=== PATIENT | female | born 1985 | race Caucasian/White ===

== ENCOUNTER 2019-09-17 09:24 | Observation (INO) ==
[2019-09-17] MEDS ORDERED: Ringers Solution, Lactated 1,000 ML ONE (11:54)
[2019-09-17] MEDS ORDERED: Ringers Solution, Lactated 1,000 ML IVC SCH (12:00)
[2019-09-17 12:15] LABS: Basophils % 0.5 %; Eosinophils # 0.3 K/mcL (0.0-0.6); Eosinophils % 3.6 %; Hematocrit 38.2 % (35.3-44.9); Hemoglobin 14.2 g/dL (11.5-15.4); Immature Granulocytes % 0.3 % (0-4); Lymphocytes # 2.3 K/mcL (0.6-4.6); Lymphocytes % 29.9 %; Mean Corpuscular Hemoglobin 32.3 pg (28.0-33.3); Mean Corpuscular Volume 86.8 fL (83.0-100.0); Mean Platelet Volume 10.5 fL (9.4-12.4); Monocytes # 0.5 K/mcL (0.0-1.3); Monocytes % 6.2 %; Neutrophils # 4.7 K/mcL (1.6-8.9); Platelet Count 268 K/mcL (140-400); Red Cell Distribution Width 11.9 % (11.5-14.5); Segmented Neutrophils % 59.5 %; White Blood Count 7.8 K/mcL (4.3-11.1)
[2019-09-17 12:16] LABS: Mean Corpuscular HGB Conc 37.2 g/dL (31.6-35.5)
[2019-09-17] MEDS: *HR* HYDROmorphone (PF) 1 MG/ML SYRINGE IVP PRN ×3 (12:21→16:33)
[2019-09-17] MEDS: Ondansetron 4 MG/2 ML VIAL IVP PRN ×2 (15:33→21:56)
[2019-09-17] MEDS ORDERED: *HR* Propofol 200 MG/20 ML VIAL IVP ONE (19:04)
[2019-09-17] MEDS ORDERED: *HR* HYDROmorphone (PF) 1 MG/ML SYRINGE IVP PRN (19:04)
[2019-09-17] MEDS ORDERED: *HR* Midazolam HCl 2 MG/2 ML VIAL ONE ×2 (19:04→20:42)
[2019-09-17] MEDS ORDERED: *HR* FentaNYL (PF) 100 MCG/2 ML VIAL ONE (19:04)
[2019-09-17] MEDS ORDERED: *HR* Promethazine 25 MG/ML VIAL IVP PRN (19:04)
[2019-09-17] MEDS ORDERED: Bupivacaine/EPI 1:200k 0.25%PF 30 ML VIAL ONE (19:09)
[2019-09-17] MEDS ORDERED: *HR* Rocuronium Bromide 50 MG/5 ML VIAL ONE (19:55)
[2019-09-17] MEDS ORDERED: Ondansetron 4 MG/2 ML VIAL ONE (19:55)
[2019-09-17] MEDS ORDERED: Dexamethasone 4 MG/ML VIAL ONE (19:55)
[2019-09-17] MEDS ORDERED: *HR* OxyCODONE/APAP 5/325 TABLET PO ONE (20:47)
[2019-09-17] MEDS ORDERED: Ketorolac 30 MG/ML VIAL ONE (20:55)
[2019-09-17] MEDS ORDERED: Neostigmine Methylsulfate 3 MG/3 ML SYRINGE ONE (20:56)
[2019-09-18 01:10] VITALS: BP 100/67
[2019-09-18] MEDS ORDERED: Ibuprofen 600 MG TABLET PO PRN (01:33)
[2019-09-18] MEDS: *HR* OxyCODONE/APAP 5/325 TABLET PO PRN ×2 (02:14→07:11)
== END 2019-09-18 07:20 | disposition home or self-care (01) ==
LOC: 1NENUOBS
PROVIDERS: ADMIT Obstetrics & Gynecology; ATTEND Obstetrics & Gynecology

== ENCOUNTER 2021-11-26 16:03 | Observation (INO) ==
[2021-11-26] MEDS ORDERED: Ibuprofen 600 MG TABLET PO ONE (17:22)
[2021-11-26 17:23] LABS: Basophils % 0.2 %; Eosinophils # 0.3 K/mcL (0.0-0.6); Hematocrit 36.8 % (35.3-44.9); Hemoglobin 12.8 g/dL (11.5-15.4); Immature Granulocytes % 0.2 % (0-4); Lymphocytes % 11.8 %; Mean Corpuscular HGB Conc 34.8 g/dL (31.6-35.5); Mean Corpuscular Hemoglobin 30.4 pg (28.0-33.3); Mean Corpuscular Volume 87.4 fL (83.0-100.0); Mean Platelet Volume 10.3 fL (9.4-12.4); Monocytes # 0.5 K/mcL (0.0-1.3); Monocytes % 5.5 %; Neutrophils # 6.9 K/mcL (1.6-8.9); Platelet Count 231 K/mcL (140-400); Red Blood Count 4.21 M/mcL (3.82-4.97); Red Cell Distribution Width 12.3 % (11.5-14.5); Segmented Neutrophils % 79.3 %; White Blood Count 8.7 K/mcL (4.3-11.1)
[2021-11-26 17:31] LABS: BUN/Creatinine Ratio 20 (6-26); Blood Urea Nitrogen 14 mg/dL (6-20); Calcium 9.3 mg/dL (8.6-10.3); Carbon Dioxide 26 mEq/L (23-29); Chloride 107 mEq/L (98-107); Glucose 93 mg/dL (70-105); Osmolality,Calculated 288 (280-300); Potassium 3.6 mEq/L (3.5-5.1); Sodium 139 mEq/L (136-145); eGFR For African Americans > 60 (> 60); eGFR For Non-African Americans > 60 (> 60)
[2021-11-26] MEDS ORDERED: Ipratropium/Albuterol Neb 3 ML IH ONE ×2 (17:34→20:27)
[2021-11-26] MEDS ORDERED: Isovue-370 500 ML BOTTLE IVP ONE (17:34)
[2021-11-26 17:53] LABS: Prothrombin Time 11.3 Seconds (9.4-12.1)
[2021-11-26 17:56] LABS: Activated Partial Thrombo Time 33.3 Seconds (26.0-36.0)
[2021-11-26] MEDS ORDERED: 0.9 % Sodium Chloride 1,000 ML IV ONE (18:28)
[2021-11-26 18:40] LABS: Troponin I < 0.03 ng/mL (< 0.04)
[2021-11-26] MEDS ORDERED: Melatonin 3 MG TABLET PO PRN (20:43)
[2021-11-26] MEDS ORDERED: Naloxone 0.4 MG/ML INJ IVP PRN (20:43)
[2021-11-26 20:44] LABS: Influenza A PCR Negative (Negative); Influenza B PCR Negative (Negative); Resp. Syncytial Virus PCR Negative (Negative)
[2021-11-26 20:50] LABS: SARS-CoV-2 by PCR (In House) Positive (Negative)
[2021-11-26 20:59] LABS: Amphetamine Screen,Urine Negative ng/mL (Cutoff=1000); Barbiturate Screen,Urine Negative ng/mL (Cutoff=200); Benzodiazepines Screen,Urine Negative ng/mL (Cutoff=200); Cannabinoid Screen,Urine Negative ng/mL (Cutoff = 50); Cocaine Screen,Urine Negative ng/mL (Cutoff= 300); Opiate Screen,Urine Negative ng/mL (Cutoff=300); Phencyclidine Screen,Urine Negative ng/mL (Cutoff=25)
[2021-11-27] MEDS: *HR* Enoxaparin 40 MG/0.4 ML SYRINGE SQ SCH (06:33)
[2021-11-27] MEDS ORDERED: MethylPREDNISolone 40 MG/ML VIAL IVP SCH (09:00)
[2021-11-27] MEDS: Ipratropium 1 PUFF INHALER IH PRN ×2 (11:16→19:50)
[2021-11-27] MEDS ORDERED: GuaiFENesin/Dextromethorphan TABLET PO PRN (13:44)
[2021-11-28] MEDS: *HR* Enoxaparin 40 MG/0.4 ML SYRINGE SQ SCH (05:17)
[2021-11-28 07:18] VITALS: BP 100/63; PULSE 79; TEMP 98.7
[2021-11-28 09:57] VITALS: O2SAT 98
== END 2021-11-28 10:01 | disposition home or self-care (01) ==
LOC: 3BNU 16:03 → EMEROOARM 16:03 → SUATTDRO 21:21 → 3BNU 21:54
PROVIDERS: ADMIT Internal Medicine; ATTEND Internal Medicine

== ENCOUNTER 2021-12-15 13:49 | Inpatient (IN) ==
[2021-12-15] MEDS ORDERED: *HR* LORazepam 2 MG/ML VIAL IVP ONE ×2 (14:12→17:46)
[2021-12-15] MEDS: Ipratropium/Albuterol Neb 3 ML IH ONE ×2 (14:19→15:51)
[2021-12-15 15:33] LABS: Basophils % 0.2 %; Eosinophils # 0.6 K/mcL (0.0-0.6); Eosinophils % 5.4 %; Hematocrit 40.5 % (35.3-44.9); Hemoglobin 13.8 g/dL (11.5-15.4); Immature Granulocytes % 0.3 % (0-4); Lymphocytes % 17.6 %; Mean Corpuscular HGB Conc 34.1 g/dL (31.6-35.5); Mean Corpuscular Hemoglobin 30.4 pg (28.0-33.3); Mean Corpuscular Volume 89.2 fL (83.0-100.0); Mean Platelet Volume 10.1 fL (9.4-12.4); Monocytes # 0.8 K/mcL (0.0-1.3); Monocytes % 6.7 %; Neutrophils # 7.8 K/mcL (1.6-8.9); Platelet Count 266 K/mcL (140-400); Red Blood Count 4.54 M/mcL (3.82-4.97); Red Cell Distribution Width 12.7 % (11.5-14.5); Segmented Neutrophils % 69.8 %; White Blood Count 11.2 K/mcL (4.3-11.1)
[2021-12-15 15:44] LABS: ABG Base Excess 1 mEq/L (-2 to 3); ABG HCO3 26 mEq/L (21-27); ABG Oxygen Saturation 89 % (95-98); ABG PCO2 42 mmHg (35-45); ABG PO2 56 mmHg (85-104); ABG TCO2 27 mEq/L (20-26)
[2021-12-15] MEDS ORDERED: Ipratropium/Albuterol Neb 3 ML ONE (15:47)
[2021-12-15] MEDS ORDERED: methylPREDNISolone 125 MG/2 ML VIAL IVP ONE (16:10)
[2021-12-15] MEDS ORDERED: Ondansetron ODT 4 MG TAB.RAPDIS SL PRN (17:42)
[2021-12-15] MEDS ORDERED: MOM Conc 10 ML UD.LIQ PO PRN (17:42)
[2021-12-15] MEDS ORDERED: Naloxone 0.4 MG/ML INJ IVP PRN (17:42)
[2021-12-15] MEDS ORDERED: Melatonin 3 MG TABLET PO PRN (17:42)
[2021-12-15] MEDS ORDERED: Mag Hydrox/Al Hydrox/Simeth 30 ML UDC PO PRN (17:42)
[2021-12-15] MEDS ORDERED: Isovue-370 500 ML BOTTLE IVP ONE (17:46)
[2021-12-15] MEDS: levoFLOXacin 750 MG/150 ML 750 MG/150 ML BAG IVPB SCH (18:12)
[2021-12-15 18:25] LABS: Alanine Aminotransferase 21 Units/L (7-52); Albumin 4.2 g/dL (3.5-5.7); Albumin/Globulin Ratio 1.4 (1.1-2.2); Alkaline Phosphatase 52 Units/L (34-104); Aspartate Amino Transferase 16 Units/L (13-39); BUN/Creatinine Ratio 13 (6-26); Bilirubin,Direct 0.1 mg/dL (0.0-0.2); Bilirubin,Indirect 0.5 mg/dL (0.0-1.0); Bilirubin,Total 0.6 mg/dL (0.3-1.0); Blood Urea Nitrogen 10 mg/dL (6-20); Calcium 8.9 mg/dL (8.6-10.3); Carbon Dioxide 23 mEq/L (23-29); Chloride 105 mEq/L (98-107); Glucose 120 mg/dL (70-105); Magnesium 2.2 mg/dL (1.6-2.6); Osmolality,Calculated 286 (280-300); Potassium 3.9 mEq/L (3.5-5.1); Sodium 138 mEq/L (136-145); Total Protein 7.2 g/dL (6.4-8.9); Troponin I < 0.03 ng/mL (< 0.04); eGFR For African Americans > 60 (> 60); eGFR For Non-African Americans > 60 (> 60)
[2021-12-15 18:37] LABS: Thyroid Stimulating Hormone 1.174 mcIU/mL (0.340-5.600)
[2021-12-15 19:14] LABS: Adenovirus Not Detected (Not Detect); Bordetella Pertussis Not Detected (Not Detect); Chlamydophila pneumoniae Not Detected (Not Detect); Coronavirus 229E Not Detected (Not Detect); Coronavirus HKU1 Not Detected (Not Detect); Coronavirus NL63 Not Detected (Not Detect); Coronavirus OC43 Not Detected (Not Detect); Human Metapneumovirus Not Detected (Not Detect); Human Rhinovirus/Enterovirus DETECTED (Not Detect); Influenza A Subtype 2009 H1 Not Detected (Not Detect); Influenza B Not Detected (Not Detect); Mycoplasma pneumoniae Not Detected (Not Detect); Parainfluenza Virus 1 Not Detected (Not Detect); Parainfluenza Virus 2 Not Detected (Not Detect); Parainfluenza Virus 3 Not Detected (Not Detect); Parainfluenza Virus 4 Not Detected (Not Detect); Respiratory Syncytial Virus Not Detected (Not Detect); SARS-CoV-2 Not Detected (Not Detect)
[2021-12-15] MEDS: Levalbuterol Neb 1.25 MG/3 ML IH SCH ×2 (19:25→22:22)
[2021-12-15 19:39] LABS: ABG Base Excess -2 mEq/L (-2 to 3); ABG HCO3 26 mEq/L (21-27); ABG Oxygen Saturation 99 % (95-98); ABG PCO2 54 mmHg (35-45); ABG PH 7.29 pH Units (7.32-7.45); ABG PO2 165 mmHg (85-104); ABG TCO2 27 mEq/L (20-26); Blood Gas Pressure Support 6 cm H2O
[2021-12-15] MEDS ORDERED: Dexmedetomidine HCl 400 MCG/100 ML MLS IVC SCH (19:45)
[2021-12-15] MEDS: MethylPREDNISolone 40 MG/ML VIAL IVP SCH (23:18)
[2021-12-16] MEDS: Levalbuterol Neb 1.25 MG/3 ML IH SCH ×4 (03:31→19:49)
[2021-12-16 04:57] LABS: Basophils % 0.2 %; Hematocrit 41.8 % (35.3-44.9); Hemoglobin 14.3 g/dL (11.5-15.4); Immature Granulocytes % 0.3 % (0-4); Lymphocytes # 0.6 K/mcL (0.6-4.6); Lymphocytes % 5.5 %; Mean Corpuscular HGB Conc 34.2 g/dL (31.6-35.5); Mean Corpuscular Hemoglobin 30.9 pg (28.0-33.3); Mean Corpuscular Volume 90.3 fL (83.0-100.0); Mean Platelet Volume 10.1 fL (9.4-12.4); Monocytes # 0.1 K/mcL (0.0-1.3); Monocytes % 0.5 %; Neutrophils # 10.7 K/mcL (1.6-8.9); Platelet Count 231 K/mcL (140-400); Red Blood Count 4.63 M/mcL (3.82-4.97); Red Cell Distribution Width 12.7 % (11.5-14.5); Segmented Neutrophils % 93.5 %; White Blood Count 11.5 K/mcL (4.3-11.1)
[2021-12-16 05:15] LABS: BUN/Creatinine Ratio 22 (6-26); Blood Urea Nitrogen 13 mg/dL (6-20); Calcium 9.6 mg/dL (8.6-10.3); Carbon Dioxide 24 mEq/L (23-29); Chloride 103 mEq/L (98-107); Glucose 169 mg/dL (70-105); Osmolality,Calculated 284 (280-300); Potassium 4.4 mEq/L (3.5-5.1); Sodium 135 mEq/L (136-145); eGFR For African Americans > 60 (> 60); eGFR For Non-African Americans > 60 (> 60)
[2021-12-16] MEDS: *HR* Enoxaparin 40 MG/0.4 ML SYRINGE SQ SCH (05:28)
[2021-12-16] MEDS: MethylPREDNISolone 40 MG/ML VIAL IVP SCH ×2 (07:40→15:48)
[2021-12-16] MEDS ORDERED: Perflutren Lipid Microsphere 1.3 ML in 0.9 % Sodium Chloride 8.7 ML IVP PRN (09:00)
[2021-12-16] MEDS: Ibuprofen 600 MG TABLET PO PRN ×2 (11:55→21:21)
[2021-12-16] MEDS: GuaiFENesin/Codeine Oral Soln 5 ML UDC PO PRN ×3 (11:56→21:21)
[2021-12-16] MEDS: levoFLOXacin 750 MG/150 ML 750 MG/150 ML BAG IVPB SCH (17:11)
[2021-12-17] MEDS: MethylPREDNISolone 40 MG/ML VIAL IVP SCH ×2 (00:10→08:42)
[2021-12-17] MEDS: Levalbuterol Neb 1.25 MG/3 ML IH SCH ×2 (03:58→07:51)
[2021-12-17] MEDS: Ibuprofen 600 MG TABLET PO PRN (05:45)
[2021-12-17] MEDS: GuaiFENesin/Codeine Oral Soln 5 ML UDC PO PRN (05:45)
[2021-12-17] MEDS: *HR* Enoxaparin 40 MG/0.4 ML SYRINGE SQ SCH (05:46)
[2021-12-17 06:52] VITALS: TEMP 97.6
[2021-12-17 07:53] VITALS: O2SAT 94
[2021-12-17 11:10] VITALS: BP 126/77; PULSE 95
== END 2021-12-17 11:35 | disposition home or self-care (01) | DRG 189 ==
LOC: EMEROOARM 13:49 → 3NENU 13:49 → 2NNU 17:50 → SUATTDRO 18:26 → 2NNU 18:30 → 3NENU 12-16 14:50
PROVIDERS: ADMIT Hospitalist; ATTEND Registered Nurse